=== PATIENT | female | born 1980 | race African-American/Black ===

== ENCOUNTER 2022-06-04 11:38 | Emergency (ER) | payer MEDICAID, OTHER ==
[~2022-06-04] VITALS: Ht 170.2 cm; Wt 64.0 kg
[2022-06-04 11:58] VITALS: BP 113/32
== END 2022-06-04 15:26 | disposition home or self-care (01) ==
LOC: ER 11:38
DX: M79.89 Other specified soft tissue disorders (principal); M25.561 Pain in right knee; G89.11 Acute pain due to trauma
CPT/HCPCS: 73564; 99283; L1830

== ENCOUNTER 2022-07-07 23:09 | Emergency (ER) | payer MEDICAID ==
[~2022-07-07] VITALS: Ht 170.2 cm; Wt 66.1 kg
[2022-07-07 23:25] VITALS: BP 131/78
[2022-07-08 04:10] LABS: HEMATOCRIT 29.5 % (36.0-48.0); HEMOGLOBIN 9.5 g/dL (12.0-16.0); MEAN CORPUSCULAR HEMOGLOBIN 28.4 pg (28.0-32.0); MEAN CORPUSCULAR VOLUME 88.6 fL (81.0-99.0); PLATELET 318 x1000/uL (130-400); RED BLOOD CELL COUNT 3.33 mill/uL (4.2-5.4); RED CELL DISTRIBUTION WIDTH 20.7 % (11.6-14.6)
[2022-07-08 04:22] LABS: CHLORIDE 108 mEq/L (98-107)
[2022-07-08 04:29] LABS: CREATINE KINASE 110 IU/L (26-192)
== END 2022-07-08 05:07 | disposition home or self-care (01) ==
LOC: ER 23:09
DX: M79.10 Myalgia, unspecified site (principal); D64.9 Anemia, unspecified; Z90.49 Acquired absence of other specified parts of digestive tract; Z98.890 Other specified postprocedural states
CPT/HCPCS: 36415; 80053; 82550; 85027; 99283

== ENCOUNTER 2022-09-25 14:51 | Emergency (ER) | payer MEDICAID, OTHER ==
[~2022-09-25] VITALS: Ht 170.2 cm; Wt 59.0 kg
[2022-09-25 15:21] VITALS: BP 118/60
[2022-09-25] MEDS ORDERED: ONDANSETRON 4MG ODT PO STA (20:09)
[2022-09-25 20:53] LABS: BASOPHILS % 0.5 % (0.0-2.0); EOSINOPHILS % 0.4 % (0.0-5.0); HEMATOCRIT. 32.2 % (36.0-48.0); HEMOGLOBIN. 10.3 g/dL (12.0-16.0); LYMPHOCYTES % 15.1 % (20.0-50.0); MEAN CORPUSCULAR HEMOGLOBIN 27.3 pg (28.0-32.0); MEAN CORPUSCULAR VOLUME 85.7 fL (81.0-99.0); MEAN PLATELET VOLUME 8.3 fl (7.4-10.4); MONOCYTES % 12.1 % (2.0-8.0); NEUTROPHILS % 71.9 % (40.0-76.0); PLATELET 330 x1000/uL (130-400); RED BLOOD CELL COUNT 3.75 mill/uL (4.2-5.4); RED CELL DISTRIBUTION WIDTH 22.5 % (11.6-14.6)
[2022-09-25 20:58] LABS: CHLORIDE 108 mEq/L (98-107)
[2022-09-25 21:05] LABS: ETHANOL BLOOD < 10 mg/dL
[2022-09-25 21:12] LABS: HCG SCREEN NEGATIVE
[2022-09-25 21:27] LABS: PLATELET ESTIMATE NORMAL
[2022-09-25] MEDS ORDERED: SODIUM CHLORIDE 0.9% 1,000 ML IV ONE (21:30)
[2022-09-25] MEDS ORDERED: ONDANSETRON 4MG ODT PO NR (23:15)
== END 2022-09-26 01:54 | disposition home or self-care (01) ==
LOC: ER 14:51
DX: E86.0 Dehydration (principal); R42 Dizziness and giddiness; D64.9 Anemia, unspecified; Z98.890 Other specified postprocedural states; Z90.49 Acquired absence of other specified parts of digestive tract
CPT/HCPCS: 36415; 71045; 80053; 80320; 82962; 83690; 84703; 85025; 93005; 96360; 99285; J7030; Q0162; G0480